=== PATIENT | female | born 1985 | race Caucasian/White ===

== ENCOUNTER 2025-02-28 16:24 | Emergency (ER) | payer OTHER ==
[~2025-02-28] VITALS: Ht 157.5 cm; Wt 72.7 kg
[2025-02-28 16:29] VITALS: TEMP 98
[2025-02-28] MEDS ORDERED: BUPR-50 PO (16:33)
[2025-02-28] MEDS ORDERED: SERT-158 PO (16:33)
[2025-02-28] MEDS ORDERED: LORA10TA7 PO (16:33)
[2025-02-28] MEDS: CIPROFLOXACIN HCL 250 MG TABLET PO ONE (17:52)
[2025-02-28] MEDS: DOXYCYCLINE HYCLATE 100 MG TABLET PO ONE (17:52)
[2025-02-28] MEDS ORDERED: DOXY-354 PO (17:57)
[2025-02-28] MEDS ORDERED: CIPR250T6 PO (17:57)
[2025-02-28] MEDS: BACITRACIN 0.9 GM PACKET OINTMENT TP ONE (17:58)
[2025-02-28 18:26] VITALS: BP 137/76; PULSE 76; RESP 18; O2SAT 100
== END 2025-02-28 18:37 | disposition home or self-care (01) ==
LOC: EMS 16:27
DX: S91.331A Puncture wound without foreign body, right foot, initial encounter (principal); F32.A Depression, unspecified; Z88.1 Allergy status to other antibiotic agents; Z79.899 Other long term (current) drug therapy; W45.0XXA Nail entering through skin, initial encounter; Y93.89 Activity, other specified; Y92.89 Other specified places as the place of occurrence of the external cause; Y99.8 Other external cause status
CPT/HCPCS: 99284; Z7502; Z7610